=== PATIENT | female | born 1955 | race Hispanic/Latino ===

== ENCOUNTER 2018-12-15 11:34 | Emergency (ER) | payer OTHER ==
[~2018-12-15] VITALS: Ht 160 cm; Wt 149.7 kg
--- OUTSIDE RECORDS SUMMARY | 2018-12-15 11:37 | XMS REPORT ---
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 Allergies, Adverse Reactions, Alerts This patient has no known allergies or adverse reactions. Medications This patient has no known medications. Encounters Start Date/Time End Date/Time Encounter Type Admission Type Attending [facility] Care Department Encounter ID 2017-09-21 00:00:00 2017-09-21 00:00:[address] [facility] [id number] 2017-09-16 00:00:00 2017-09-16 00:00:[address] [facility] [id number] 2017-09-01 00:00:00 2017-09-01 00:00:[address] [facility] [id number] 2017-08-02 00:00:00 2017-08-02 00:00:[address] [facility] [id number] 2017-07-22 13:25:01 2017-07-22 13:25:[address] [facility] [id number] 2017-06-20 00:00:00 2017-06-20 00:00:[address] [facility] [id number] 2017-06-20 00:00:00 2017-06-20 00:00:[address] [facility] [id number] 2017-04-21 00:00:00 2017-04-21 00:00:[address] [facility] [id number] 2017-04-21 00:00:00 2017-04-21 00:00:[address] [facility] [id number] 2017-03-08 00:00:00 2017-03-08 00:00:[address] [facility] [id number]
[2018-12-15] MEDS ORDERED: FLECAINIDE ACE100 MG PO (11:53)
[2018-12-15] MEDS ORDERED: LOSARTAN POTASS25 MG PO (11:53)
[2018-12-15] MEDS ORDERED: PRAVASTATIN SOD40 MG (11:53)
[2018-12-15] MEDS ORDERED: SYNTHROID125 MCG PO (11:53)
[2018-12-15] MEDS ORDERED: XARELTO20 MG (11:53)
[2018-12-15] MEDS ORDERED: METOPROLOL TART50 MG PO (11:53)
[2018-12-15] MEDS ORDERED: METFORMIN HCL500 MG PO (11:53)
[2018-12-15 12:24] VITALS: BP 140/62
== END 2018-12-15 13:28 | disposition home or self-care (01) ==
LOC: ER 11:34
DX: M79.621 Pain in right upper arm (principal); M79.631 Pain in right forearm; M25.531 Pain in right wrist; M79.641 Pain in right hand; Y93.84 Activity, sleeping; Y92.003 Bedroom of unspecified non-institutional (private) residence as the place of occurrence of the external cause; I10 Essential (primary) hypertension; I48.92 Unspecified atrial flutter; E11.9 Type 2 diabetes mellitus without complications; I50.9 Heart failure, unspecified; J44.9 Chronic obstructive pulmonary disease, unspecified
CPT/HCPCS: 93005; 99283